=== PATIENT | male | born 1995 | race Caucasian/White ===

== ENCOUNTER 2024-10-25 15:05 | Emergency (ER) | payer OTHER ==
[2024-10-25 15:17] VITALS: BP 105/68; PULSE 70; RESP 18; TEMP 98; BMI 27.1
[2024-10-25] MEDS ORDERED: IBUPROFEN 600 MG TABLET (FP) PO ONE (15:31)
[2024-10-25] MEDS: IBUPROFEN 600 MG TABLET (FP) PO ONE (15:33)
== END 2024-10-25 15:38 | disposition home or self-care (01) ==
LOC: JERFT 15:05
DX: S39.012A Strain of muscle, fascia and tendon of lower back, initial encounter (principal); X50.0XXA Overexertion from strenuous movement or load, initial encounter; Y99.0 Civilian activity done for income or pay
CPT/HCPCS: 99283-25